=== PATIENT | male | born 1995 | race Hispanic/Latino ===

== ENCOUNTER 2021-03-29 00:11 | Emergency (ER) | payer SELFPAY ==
[2021-03-29 02:37] VITALS: BP 104/64
== END 2021-03-29 03:00 | DRG 563 ==
LOC: ED 00:11
DX: S62.326B Displaced fracture of shaft of fifth metacarpal bone, right hand, initial encounter for open fracture (principal); X99.0XXA Assault by sharp glass, initial encounter; Y92.009 Unspecified place in unspecified non-institutional (private) residence as the place of occurrence of the external cause